=== PATIENT | female | born 1975 | race Caucasian/White ===

== ENCOUNTER 2019-09-21 20:50 | Emergency (ER) | payer MEDICAID, OTHER ==
[~2019-09-21] VITALS: Ht 170.2 cm; Wt 66.6 kg
[2019-09-21] MEDS ORDERED: methylPREDNISolone SOD SUCC 125 MG/2 ML IVPush ONE (21:00)
[2019-09-21] MEDS ORDERED: SODIUM CHLORIDE FLUSH 10ML SYR IVF ONE ×2 (21:00→21:30)
[2019-09-21] MEDS ORDERED: FAMOTIDINE 20 MG/2 ML IVPush ONE (21:00)
[2019-09-21] MEDS ORDERED: DIPHENHYDRAMINE 50 MG/ML, 1ML IVPush ONE (21:00)
[2019-09-21] MEDS ORDERED: ALBUTEROL/IPRATROPIUM 2.5MG/0.5MG, 3 ML ONE (21:11)
[2019-09-21] MEDS ORDERED: DIPHENHYDRAMINE 50 MG/ML, 1ML ONE (21:18)
[2019-09-21] MEDS ORDERED: methylPREDNISolone SOD SUCC 125 MG/2 ML ONE (21:18)
[2019-09-21] MEDS ORDERED: FAMOTIDINE 20 MG/2 ML ONE (21:18)
--- NOTE | 2019-09-21 21:29 | NUR ---
PT. HAS NUT ALLERGY TO ED WITH C/O AL RX AFTER EATING FOOD WITH NUTS. ABLE TO SPEAK IN FULL SENTENCES. RECEIVED BREATHING TX FROM RT. HR 103; GAVE SELF EPI TUG CAPTAIN.
[2019-09-21] MEDS ORDERED: ONDANSETRON 2MG/ML, 2ML IVPush ONE (21:30)
[2019-09-21] MEDS ORDERED: EPINEPHRINE 1 MG/ML, 1ML SQ ONE (21:30)
[2019-09-21] MEDS ORDERED: SODIUM CHLORIDE 0.9% 1,000ML IVBOLUS ONE (21:30)
[2019-09-21] MEDS ORDERED: ALBUTEROL/IPRATROPIUM 2.5MG/0.5MG, 3 ML NPPB ONE ×2 (21:30)
--- NOTE | 2019-09-21 21:42 | NUR ---
PT. MEDICATED PER DEC.
--- NOTE | 2019-09-21 21:44 | NUR ---
ALL MONITORS WERE PLACED WHEN PT. WAS TO ROOM FROM [facility] BY ADMINISTRATIVE ASSISTANT. PT. VSS.
--- NOTE | 2019-09-21 22:16 | NUR ---
REPORT TO MEGHANA TRIPATHI TO ASSUME CARE OF PT.
[2019-09-21] MEDS ORDERED: ONDANSETRON 2MG/ML, 2ML ONE (22:18)
[2019-09-21] MEDS ORDERED: EPINEPHRINE 1 MG/ML, 1ML ONE (22:19)
[2019-09-21] MEDS ORDERED: ALBUTEROL SULFATE 2.5 MG/3 ML ONE (22:28)
[2019-09-21 22:34] VITALS: BP 98/52
--- NOTE | 2019-09-21 22:35 | NUR ---
PT MEDICATED PER DEC. RT AT BEDSIDE FOR RT T/X
[2019-09-21] MEDS ORDERED: ALBU2.5V11 NEB (22:38)
[2019-09-21] MEDS ORDERED: EPIN0.1S2 SQ (22:38)
[2019-09-21] MEDS ORDERED: THYR16.2 PO (22:38)
== END 2019-09-21 23:50 | disposition home or self-care (01) ==
LOC: ED 23:45
DX: T78.01XA Anaphylactic reaction due to peanuts, initial encounter (principal); J45.909 Unspecified asthma, uncomplicated; X58.XXXA Exposure to other specified factors, initial encounter
CPT/HCPCS: 94640; 96372; 96374; 96375; 99291; J0171; J1200; J2405; J2930; J3490; J7030